=== PATIENT | female | born 1990 | race Caucasian/White ===

== ENCOUNTER → 2017-09-09 | Outpatient (CLI) | payer OTHER ==
[~2017-09-09] MED LIST: LORA10CA2 PO; MULTTAB58 PO
--- NOTE | 2017-09-09 11:51 | DIAGNOSTIC IMAGING REPORT ---
KUB HISTORY: Nephrolithiasis. COMPARISON: Abdomen and pelvis CT 07/27/2012. FINDINGS: The bowel gas pattern is unremarkable. There are no dilated loops of small bowel to suggest an obstruction. There is a punctate stone within the right kidney. No left renal or ureteral calculi identified. No bladder stones are present. No pneumoperitoneum or pneumatosis. IMPRESSION: Right-sided nephrolithiasis. No ureteral calculi. Electronically signed by: Manolo Hogan M.D. 09/09/2017 11:50 AM Dictated Date/Time: 09/09/2017 11:48 AM
== END | disposition home or self-care (01) ==
LOC: C.RAD 10:45
PROVIDERS: ATTEND Urology
DX: N20.0 Calculus of kidney (principal)